=== PATIENT | female | born 1990 ===

== ENCOUNTER 2018-01-19 11:38 | Outpatient (CLI) | payer MEDICAID | END 2018-01-19 13:38 | disposition home or self-care (01) | LOC: OBT 11:38 → L-D 11:39 → OBT 13:38 | DX: O47.1 False labor at or after 37 completed weeks of gestation (principal); Z3A.40 40 weeks gestation of pregnancy | CPT/HCPCS: 76818 ==

== ENCOUNTER 2018-01-20 06:46 | Inpatient (IN) | payer MEDICAID ==
[2018-01-20] MEDS ORDERED: CARBOPROST 250 MCG INJ IM ×2 (07:30→15:00)
[2018-01-20] MEDS ORDERED: LIDOCAINE 1% (MPF) 30 ML INJ INJ (07:30)
[2018-01-20] MEDS ORDERED: MISOPROSTOL 200 MCG TAB PR ×2 (07:30→15:00)
[2018-01-20] MEDS ORDERED: OXYTOCIN 30 UNITS/LR 500 ML IV ×3 (07:30→15:00)
[2018-01-20] MEDS ORDERED: IBUPROFEN 600 MG TAB PO (07:30)
[2018-01-20] MEDS ORDERED: BUTORPHANOL 2 MG INJ IV (07:30)
[2018-01-20 07:53] LABS: ADD MAN DIFF? NO; BASOPHIL # 0.1 10^3/ul (0.0-0.1); BASOPHILS % 0.4 % (0.0-2.0); EOSINOPHILS % 0.3 % (0.0-7.0); HEMATOCRIT 35.1 % (37.0-47.0); HEMOGLOBIN 11.2 g/dl (12.0-16.0); LYMPHOCYTES # 2.3 10^3/ul (0.8-2.9); LYMPHOCYTES % 16.5 % (15.0-51.0); MEAN CORPUSCULAR HEMOGLOBIN 25.1 pg (29.0-33.0); MEAN CORPUSCULAR HGB CONC 31.9 g/dl (32.0-37.0); MEAN CORPUSCULAR VOLUME 78.5 fl (82.0-101.0); MEAN PLATELET VOLUME 10.3 fl (7.4-10.4); MONOCYTE # 1.1 10^3/ul (0.3-0.9); MONOCYTES % 7.5 % (0.0-11.0); NEUTROPHIL # 10.3 10^3/ul (1.6-7.5); NEUTROPHILS % 73.9 % (39.0-77.0); PLATELET COUNT 294 10^3/UL (140-415); RED BLOOD COUNT 4.47 10^6/ul (4.20-5.40); RED CELL DISTRIBUTION WIDTH 14.6 % (11.5-14.5)
[2018-01-20 07:53] LABS: WHITE BLOOD COUNT 13.9 10^3/ul (4.8-10.8)
[2018-01-20] MEDS: LACTATED RINGER'S 1,000 ML IV ×2 (08:19→08:38)
[2018-01-20] MEDS: AMPICILLIN 2 GM/NS (PMX) 100 ML IV (08:20)
[2018-01-20 08:24] LABS: INR 0.89; PROTIME 12.1 Sec (11.9-14.9); PT RATIO 0.9
[2018-01-20] MEDS ORDERED: FENTAnyl 2MCG/ML-ROPIV 0.2% 100 ML (08:28)
[2018-01-20 08:46] LABS: HEPATITIS B SURFACE ANTIGEN NEGATIVE (NEGATIVE)
[2018-01-20 08:57] LABS: HIV 1&2 ANTIBODY NEGATIVE (NEGATIVE)
[2018-01-20 09:46] LABS: ADD UMIC YES; UR ASCORBIC ACID NEGATIVE (NEGATIVE); UR BACTERIA FEW /HPF (NONE SEEN); UR BILIRUBIN (Dip) NEGATIVE (NEGATIVE); UR BLOOD (Dip) 2+ mg/dL (NEGATIVE); UR CLARITY CLEAR (CLEAR); UR COLOR YELLOW (YELLOW); UR GLUCOSE (Dip) NEGATIVE (NEGATIVE); UR KETONES (Dip) NEGATIVE (NEGATIVE); UR LEUKOCYTE ESTERASE (Dip) NEGATIVE Leu/ul (NEGATIVE); UR NITRITE (Dip) NEGATIVE (NEGATIVE); UR RBC 0 /HPF (0-5); UR SPECIFIC GRAVITY (Dip) 1.018 (1.003-1.030); UR TOTAL PROTEIN (Dip) 1+ mg/dl (NEGATIVE); UR UROBILINOGEN (Dip) NEGATIVE (NEGATIVE); UR WBC 1 /HPF (0-5)
[2018-01-20 10:06] LABS: AMPHETAMINE/METHAMPHETAMINE Negative (NEGATIVE); BARBITURATES Negative (NEGATIVE); BENZODIAZEPINES Negative (NEGATIVE); CANNABINOIDS Negative (NEGATIVE); COCAINE Negative (NEGATIVE); OPIATES Negative (NEGATIVE)
[2018-01-20] MEDS ORDERED: FENTAnyl 2MCG/ML-ROPIV 0.2% 100 ML BAG EPI (11:00)
[2018-01-20] MEDS ORDERED: NALOXONE (0.4 MG/ML) INJ IV (11:00)
[2018-01-20] MEDS ORDERED: ONDANSETRON 4 MG INJ IV ×2 (11:00→15:00)
[2018-01-20] MEDS ORDERED: DIPHENHYDRAMINE 50 MG INJ IV ×2 (11:00→15:00)
[2018-01-20] MEDS ORDERED: TRIMETHOBENZAMIDE 100 MG/ML VIAL IM (11:00)
[2018-01-20] MEDS ORDERED: AMPICILLIN 1 GM/NS (PMX) 50 ML IV (11:30)
[2018-01-20] MEDS: OXYTOCIN 30 UNITS/LR 500 ML IV ×2 (12:12→14:18)
[2018-01-20] MEDS: METHYLERGONOVINE 0.2 MG INJ IM (12:19)
[2018-01-20] MEDS: MISOPROSTOL 200 MCG TAB PO (12:34)
[2018-01-20] MEDS ORDERED: LACTATED RINGER'S 1,000 ML IV* (14:40)
[2018-01-20] MEDS ORDERED: DEXTROSE 5%-LR 1,000 ML IV (14:40)
[2018-01-20] MEDS ORDERED: METHYLERGONOVINE 0.2 MG INJ IM (15:00)
[2018-01-20] MEDS ORDERED: ZOLPIDEM 5 MG TAB PO (15:00)
[2018-01-20] MEDS ORDERED: DIBUCAINE 1% 30 GM OINT PR (15:00)
[2018-01-20] MEDS ORDERED: SENNA/DOCUSATE NA (8.6MG/50MG) TAB PO (15:00)
[2018-01-20] MEDS ORDERED: WITCH HAZEL/GLYCERIN PAD PR (15:00)
[2018-01-20] MEDS ORDERED: ACETAMINOPHEN 325 MG TAB PO (15:00)
[2018-01-20] MEDS ORDERED: BENZOCAINE 20% 56 ML SPRAY TOP (15:00)
[2018-01-20] MEDS: OXYCODONE/ASPIRIN (4.88/325) TAB PO (16:25)
[2018-01-20] MEDS: LANOLIN 7 GM TUBE TOP (16:26)
[2018-01-20] MEDS: IBUPROFEN 600 MG TAB PO (17:55)
[2018-01-20 20:37] LABS: RAPID PLASMA REAGIN NONREACTIVE (NR)
[2018-01-21] MEDS: IBUPROFEN 600 MG TAB PO ×4 (05:45→18:00)
[2018-01-21 08:41] LABS: ADD MAN DIFF? NO
[2018-01-21 08:49] LABS: BASOPHIL # 0.1 10^3/ul (0.0-0.1); BASOPHILS % 0.3 % (0.0-2.0); EOSINOPHILS # 0.1 10^3/ul (0.0-0.5); EOSINOPHILS % 0.4 % (0.0-7.0); HEMATOCRIT 30.7 % (37.0-47.0); HEMOGLOBIN 9.8 g/dl (12.0-16.0); LYMPHOCYTES # 2.5 10^3/ul (0.8-2.9); LYMPHOCYTES % 16.6 % (15.0-51.0); MEAN CORPUSCULAR HEMOGLOBIN 25.1 pg (29.0-33.0); MEAN CORPUSCULAR HGB CONC 31.9 g/dl (32.0-37.0); MEAN CORPUSCULAR VOLUME 78.7 fl (82.0-101.0); MEAN PLATELET VOLUME 10.6 fl (7.4-10.4); MONOCYTE # 1.3 10^3/ul (0.3-0.9); MONOCYTES % 8.5 % (0.0-11.0); NEUTROPHIL # 11.1 10^3/ul (1.6-7.5); NEUTROPHILS % 73.5 % (39.0-77.0); PLATELET COUNT 254 10^3/UL (140-415); RED CELL DISTRIBUTION WIDTH 14.8 % (11.5-14.5)
[2018-01-21 08:49] LABS: WHITE BLOOD COUNT 15.1 10^3/ul (4.8-10.8)
[2018-01-22] MEDS: IBUPROFEN 600 MG TAB PO ×4 (00:44→13:14)
[2018-01-22] MEDS: MEASLES,MUMPS,RUBELLA VACCINE INJ SC* (09:00)
[2018-01-22] MEDS: DIPHTH/TET/ACEL PERTUSS (ADULT) 0.5 ML VIAL IM* (10:49)
[2018-01-23 12:17] LABS: RUBELLA ANTIBODY - IGG 3.94 index
[2018-01-23 14:37] LABS: RUBELLA ANTIBODY - IGM <20.00 AU/mL
== END 2018-01-22 17:36 | disposition home or self-care (01) | DRG 775 ==
LOC: OBT 06:46 → L-D 06:49 → OBT 07:41 → L-D 07:43 → PP1 14:54
PROC: 10E0XZZ Delivery of Products of Conception, External Approach (ICD-10-PCS; principal; 2018-01-20)
PROC: 3E033VJ Introduction of Other Hormone into Peripheral Vein, Percutaneous Approach (ICD-10-PCS; 2018-01-20)
DX: O48.0 Post-term pregnancy (principal); Z3A.40 40 weeks gestation of pregnancy; O69.81X0 Labor and delivery complicated by cord around neck, without compression, not applicable or unspecified; Z37.0 Single live birth
CPT/HCPCS: 62319; 80307; 81001; 85025; 85610; 85730; 86592; 86703; 86762; 86850; 86900; 86901; 87340; 90715